=== PATIENT | female | born 1970 | race African-American/Black ===

== ENCOUNTER → 2020-08-31 | Outpatient (CLI) | payer BC ==
[2016-05-06 16:40] VITALS: BP 150/90
[~2020-08-31] MED LIST: AMLO-187 PO; ESCITALOPRAM OX20 MG PO; PRED20TA PO
== END ==
LOC: LAB 08:17
PROVIDERS: ATTEND Nurse Anesthetist, Certified Registered
DX: Z01.812 Encounter for preprocedural laboratory examination (principal); R58 Hemorrhage, not elsewhere classified; Z20.822 Contact with and (suspected) exposure to COVID-19
CPT/HCPCS: U0003

== ENCOUNTER → 2020-11-30 | Outpatient (CLI) | payer BC ==
[2016-05-06 16:40] VITALS: BP 150/90
== END ==
LOC: LAB 07:00
PROVIDERS: ATTEND Nurse Anesthetist, Certified Registered
DX: Z01.812 Encounter for preprocedural laboratory examination (principal); Z20.822 Contact with and (suspected) exposure to COVID-19
CPT/HCPCS: U0003

== ENCOUNTER → 2020-12-04 | Day surgery (SDC) | payer BC, OTHER ==
[~2020-12-04] MED LIST changes: +GLYCOPYRROLATE 1 MG/5 ML VIAL. ONE; +IPRATRPIUM/ALBUTEROL 0.5/2.5MG 3 ML NEBU. NEB PRN; +IV RINGERS SOLUTION,LACTATED 1,000 ML IV SCH; +LIDOCAINE 2% PF 5 ML VIAL. ONE; +MIDAZOLAM HCL PF 2 MG/2 ML VIAL. IV ONE; +ONDANSETRON PF 4 MG/2 ML VIAL. IV PRN; +ONDANSETRON PF 4 MG/2 ML VIAL. ONE; +PROPOFOL 10,000 MCG/ML (20ML) VIAL IV ONE
--- NOTE | 2020-12-04 11:32 | NUR ---
PATIENT STATES MENSTRUAL PERIODS ARE SPORADIC AND HAS NOT BEEN SEXUALLY ACTIVE IN 13 YEARS. NOTIFIED ANESTHESIA.
[2020-12-04 12:35] VITALS: BP 129/64
== END | disposition home or self-care (01) ==
LOC: SURG 10:53
PROVIDERS: ATTEND Internal Medicine Gastroenterology
DX: K92.1 Melena (principal); K57.30 Diverticulosis of large intestine without perforation or abscess without bleeding; K57.32 Diverticulitis of large intestine without perforation or abscess without bleeding; R14.0 Abdominal distension (gaseous); K64.8 Other hemorrhoids; I10 Essential (primary) hypertension; E66.9 Obesity, unspecified; Z88.0 Allergy status to penicillin; Z91.013 Allergy to seafood; Z91.041 Radiographic dye allergy status; Z79.899 Other long term (current) drug therapy
CPT/HCPCS: 45378; J2001; J2405; J2704; J3490; J7120

== ENCOUNTER → 2021-03-12 | Outpatient (CLI) | payer OTHER ==
[2020-12-04 12:35] VITALS: BP 129/64
[~2021-03-12] MED LIST changes: -GLYCOPYRROLATE 1 MG/5 ML VIAL. ONE; -IPRATRPIUM/ALBUTEROL 0.5/2.5MG 3 ML NEBU. NEB PRN; -IV RINGERS SOLUTION,LACTATED 1,000 ML IV SCH; -LIDOCAINE 2% PF 5 ML VIAL. ONE; -MIDAZOLAM HCL PF 2 MG/2 ML VIAL. IV ONE; -ONDANSETRON PF 4 MG/2 ML VIAL. IV PRN; -ONDANSETRON PF 4 MG/2 ML VIAL. ONE; -PROPOFOL 10,000 MCG/ML (20ML) VIAL IV ONE
--- NOTE | 2021-03-12 16:04 | RAD ---
MG 2D BILAT SCREENING 03/12/2021 3:10 PM INDICATION: Asymptomatic screening mammogram. COMPARISON: None available TECHNIQUE: 2D CC and MLO projections were obtained of each breast. FINDINGS: Breast density: Category C: The breats are heterogeneously dense, which may obscure small masses. Right breast: There are no suspicious microcalcifications, masses or areas of architectural distortio n. Left breast: Segmental microcalcifications identified within the inferior left breast, along the post erior nipple line on the left CC view. Further evaluation with spot magnification CC and ML views rec ommended as well as full field true lateral. IMPRESSION: 1. Incomplete left mammogram. Additional imaging is recommended as detailed above. 2. Negative right mammogram. BI-RADS category: 0; Incomplete Recommendations: Recommend additional imaging for which the patient will need to be called back. Electronically signed by: Sommer Magana MD (03/12/2021 4:01 PM) [id number]
== END ==
LOC: MAMMO 15:07
PROVIDERS: ATTEND Internal Medicine
DX: Z12.31 Encounter for screening mammogram for malignant neoplasm of breast (principal)
CPT/HCPCS: 77067

== ENCOUNTER 2021-07-17 14:00 | Emergency (ER) | payer OTHER ==
[~2021-07-17] VITALS: Ht 162.6 cm; Wt 85.4 kg
--- NOTE | 2021-07-17 15:40 | PHYS DOC ---
Past History Past Medical History: No Pertinent History Past Surgical History: Cholecystectomy Alcohol Use: None Drug Use: None Adult General Chief Complaint Chief Complaint: SHORTNESS OF BREATH HPI HPI Patient is a 50-year-old male presenting via POV for chest pain. Reports she was recently diagnosed with COVID within the last 72 hours. States she is vaccinated with prior history of infection on 2019. Reports she has been fatigued with a dry nonproductive cough, classic upper respiratory symptoms and chest pain that is left-sided without radiation and constant for last 48 hours. Nothing known makes better, she has been using her son's albuterol inhaler with mild relief in symptoms. She has no other pertinent comorbid conditions besides high blood pressure and mental health issues, is not on any anticoagulation with no prior history of CAD or blood clots Review of Systems Review of Systems Fourteen body systems of review of systems have been reviewed. See HPI for pertinent positives and negative responses, other [place] all other systems are negative, non-pertinent or non-contributory Allergies Allergies Allergies Coded Allergies Type Severity Reaction Last Updated Verified Penicillins Allergy Unknown 12/04/20 No iodine Allergy Unknown 12/04/20 Yes shellfish derived Allergy Unknown 12/04/20 No Physical Exam Physical Exam Constitutional: Well developed, well nourished, moderate distress due to anxiety but is otherwise non-toxic in appearance. HENT: Normocephalic, atraumatic, bilateral external ears normal, oropharynx moist, no oral exudates, nose normal. Eyes: PERRLA, EOMI, conjunctiva normal, no discharge. Neck: Normal range of motion, no tenderness, supple, no stridor. Cardiovascular: Heart rate regular, sinus rhythm, no murmurs rubs or gallops Lungs & Thorax: Speaking in few word sentences at times but there is no inc reased work of breathing, accessory muscle use, acute respiratory distress with bilateral lungs clear to auscultation Abdomen: Bowel sounds normal, soft, no tenderness, no masses, no pulsatile masses. Nonsurgical abdomen, no peritoneal signs Skin: Warm, dry, no erythema, no rash. Back: No tenderness, no CVA tenderness. Extremities: No tenderness, no cyanosis, no clubbing, ROM intact, no edema. Neurologic: Alert and oriented X 3, grossly normal motor & sensory function, no focal deficits noted. Psychologic: Anxious affect and mood Current Patient Data Vital Signs Vital Signs Date Time Temp Pulse Resp B/P (MAP) Pulse Ox O2 Delivery O2 Flow Rate FiO2 07/17/21 16:58 99.2 62 16 137/62 (87) 100 Room Air Vital Signs Date Time Temp Pulse Resp B/P (MAP) Pulse Ox O2 Delivery O2 Flow Rate FiO2 07/17/21 18:12 99 18 138/70 (92) 100 07/17/21 16:58 99.2 Room Air Lab Results Laboratory Tests Test 07/17/21 15:50 07/17/21 16:10 White Blood Count 7.2 x10^3/uL Red Blood Count 4.63 x10^6/uL Hemoglobin 13.1 g/dL Hematocrit 39.1 % Mean Corpuscular Volume 85 fL Mean Corpuscular Hemoglobin 28 pg Mean Corpuscular Hemoglobin Concent 33 g/dL Red Cell Distribution Width 14.8 % Platelet Count 315 x10^3/uL Neutrophils (%) (Auto) 65 % Lymphocytes (%) (Auto) 24 % Monocytes (%) (Auto) 7 % Eosinophils (%) (Auto) 3 % Basophils (%) (Auto) 1 % Neutrophils # (Auto) 4.7 x10^3uL Lymphocytes # (Auto) 1.7 x10^3/uL Monocytes # (Auto) 0.5 x10^3/uL Eosinophils # (Auto) 0.2 x10^3/uL Basophils # (Auto) 0.1 x10^3/uL Sodium Level 137 mmol/L Potassium Level 3.0 mmol/L Chloride Level 99 mmol/L Carbon Dioxide Level 31 mmol/L Anion Gap 7 Blood Urea Nitrogen 12 mg/dL Creatinine 0.9 mg/dL Estimated GFR (Cockcroft-Gault) 80.2 BUN/Creatinine Ratio 13 Glucose Level 82 mg/dL Calcium Level 9.3 mg/dL Magnesium Level 2.2 mg/dL Total Bilirubin 0.3 mg/dL Aspartate Amino Transf (AST/SGOT) 22 U/L Alanine Aminotransferase (ALT/SGPT) 21 U/L Alkaline Phosphatase 80 U/L Troponin I High Sensitivity 46 ng/L LG-Jqk-N-Type Natriuretic Peptide 13 pg/mL Total Protein 7.8 g/dL Albumin 3.3 g/dL Albumin/Globulin Ratio 0.7 Urine Collection Type Unknown Urine Color Yellow Urine Clarity Clear Urine pH 8.5 Urine Specific [place] 1.020 Urine Protein Neg Urine Glucose (UA) Neg mg/dL Urine Ketones (Stick) 15 mg/dL Urine Blood Neg Urine Nitrite Neg Urine Bilirubin Neg Urine Urobilinogen Dipstick 0.2 mg/dL Urine Leukocyte Esterase Neg Urine RBC 0 /HPF Urine WBC 0 /HPF Urine Squamous Epithelial Cells Few /LPF Urine Bacteria Few /HPF Current Medications Medications (Trade) Dose Ordered Sig/Ashley Route PRN Reason Start Time Stop Time Status Last Admin Dose Admin Aspirin (Aspirin Chewable) 162 mg 1X ONCE PO 07/17/21 15:45 07/17/21 15:46 DC 07/17/21 16:46 Potassium Chloride (Klor-Con) 40 meq 1X ONCE PO 07/17/21 17:30 07/17/21 17:31 DC 07/17/21 17:55 EKG EKG EKG ordered and interpreted by myself at 1659 hrs. as sinus rhythm at 71 bpm, unremarkable intervals, no axis deviation, no obvious ischemic findings, no STEMI Radiology/Procedures Radiology/Procedures Study: XR CHEST 1V Indication: Cough. Comparison: 07/17/2020 Findings: The cardiomediastinal silhouette and suzanne are within normal limits. No localized airspace opacity, pleural effusion or pneumothorax. Impression: No acute radiographic abnormality of the chest. No relevant change from the 06/23 comparison. Electronically signed by: PAVITHRA BADILLO MD (07/17/2021 8:49 PM) [facility] Heart Score C/O Chest Pain: Yes HEART Score for Chest Pain: HEART Score for Chest Pain Response (Comments) Value History Slighlty/Non-Suspicious 0 ECG Normal 0 Age >45 - < 65 1 Risk Factors 1 or 2 Risk Factors 1 Troponin < Normal Limit 0 Total 2 Risk Factors: Risk Factors: DM, Current or recent (<one month) smoker, HTN, HLP, family history of CAD, obesity. Risk Scores: Risk Factors: DM, Current or recent (<one month) smoker, HTN, HLP, family history of CAD, obesity. Course & Med Decision Making Course & Med Decision Making ABCs unremarkable. I disclosed entirety of ER findings and discussed most likely diagnosis of atypical chest pain in setting of known Covid positive patient who is vaccinated. Other diagnoses were discussed with patient such as ACS, pneumonia and other potentially life-threatening diagnoses but all deemed less likely causes of patient's presentation. Plan of care discussed at length with need for close outpatient follow-up to review today's ER visit stressed. Strict return precautions were also discussed at length with good understanding verbalized by patient. Patient's hypokalemia supplemented with potassium today, because likely due to use of her sons proair inhaler. Advised against continued use in absence of any pulmonary abnormalities and/or wheezing, patient given incentive spirometer to use at home. Patient voiced understanding and agreement with the plan. Patient knows to come back for repeat evaluation if concerning signs or symptoms present prior to outpatient follow-up. Hemodynamically stable, ambulatory and well-appearing at time of disposition. Dragon Disclaimer Dragon Disclaimer This electronic medical record was generated, in whole or in part, using a voice recognition dictation system. Departure Departure: Impression: Primary Impression: COVID-19 Additional Impression: Hypokalemia Disposition: HOME / SELF CARE / HOMELESS Condition: STABLE Referrals: HADLEY GOODWIN MD (PCP) Additional Instructions: As discussed prior to ER departure, your vitals, physical exam and comprehensive ER work-up nonconcerning for any emergent or surgical issues. You are suffering sequelae from COVID-19 and should utilize incentive spirometry in addition to additional supportive care practices such as ibuprofen and/or Tylenol for aches and pains at home. Your potassium was low, likely due to the use of your son's inhaler. This was replaced today and will need outpatient monitoring for repeat analysis when safe to do so. If any concerning signs or symptoms present prior to outpatient follow-up please do not hesitate to come back for repeat evaluation. It was a pleasure to take care of you and I wish you the best going forward Problem Qualifiers SAM LEA DO Jul 17, 2021 15:40
[2021-07-17] MEDS ORDERED: ASPIRIN CHEWABLE 81 MG TABLET. PO ONE (15:45)
[2021-07-17 16:05] LABS: BASO # 0.1 x10^3/uL (0.0-0.2); BASO % 1 % (0-3); EOS # 0.2 x10^3/uL (0.0-0.7); EOS % 3 % (0-3); HEMATOCRIT 39.1 % (36.0-47.0); HEMOGLOBIN 13.1 g/dL (12.0-15.5); LYMPH # 1.7 x10^3/uL (1.0-4.8); LYMPH % 24 % (24-48); MEAN CORPUSCULAR HEMOGLOBIN 28 pg (25-35); MEAN CORPUSCULAR HGB CONC 33 g/dL (31-37); MEAN CORPUSCULAR VOLUME 85 fL (79-100); MONO # 0.5 x10^3/uL (0.0-1.1); MONO % 7 % (0-9); NEUT # 4.7 x10^3uL (1.8-7.7); NEUT % 65 % (31-73); PLATELET COUNT 315 x10^3/uL (140-400); RED BLOOD COUNT 4.63 x10^6/uL (3.50-5.40); RED CELL DISTRIBUTION WIDTH 14.8 % (11.5-14.5); WHITE BLOOD COUNT 7.2 x10^3/uL (4.0-11.0)
[2021-07-17 16:15] LABS: CALCIUM 9.3 mg/dL (8.5-10.1); CREATININE 0.9 mg/dL (0.6-1.0); GFR 80.2
[2021-07-17 16:27] LABS: ALBUMIN 3.3 g/dL (3.4-5.0); ALBUMIN/GLOBULIN RATIO 0.7 (1.0-1.7); TOTAL BILIRUBIN 0.3 mg/dL (0.2-1.0); TOTAL PROTEIN 7.8 g/dL (6.4-8.2)
[2021-07-17 16:39] LABS: BACTERIA,URINE FEW /HPF (0-FEW); BILIRUBIN,URINE NEG (NEG); CLARITY,URINE CLEAR; COLOR,URINE YELLOW; GLUCOSE,URINE NEG (NEG); NITRITE,URINE NEG (NEG); RBC,URINE 0 /HPF (0-2); SQUAMOUS EPITHELIAL CELL,UR FEW /LPF; UROBILINOGEN,URINE 0.2 mg/dL (0.2 mg/dL); WBC,URINE 0 /HPF (0-4)
[2021-07-17] MEDS ORDERED: POTASSIUM CHLORIDE 20 MEQ TABLET.ER. PO ONE (17:30)
[2021-07-17 18:12] VITALS: BP 138/70
--- NOTE | 2021-07-17 20:51 | RAD ---
Study: XR CHEST 1V Indication: Cough. Comparison: 07/17/2020 Findings: The cardiomediastinal silhouette and suzanne are within normal limits. No localized airspace opacity, pl eural effusion or pneumothorax. Impression: No acute radiographic abnormality of the chest. No relevant change from the 07/17/2020 comparison. Electronically signed by: PAVITHRA BADILLO MD (07/17/2021 8:49 PM) [facility] [place]
--- NOTE | 2021-07-18 19:14 | EKG ---
[address] [address] Test Date: 2021-07-17 Test Time: 16:52:38 Pat Name: MAMADOU MELCHOR Department: Room: Gender: F [employer]: RYAN : 1970 Requested By: SAM LEA Order Number: [id number] Reading MD: Alexander Cervantes Measurements Intervals [place] Rate: 71 P: 49 MD: 154 QRS: 24 QRSD: 82 T: 27 QT: 394 QTc: 433 Interpretive Statements SINUS RHYTHM NORMAL ECG RI6.02 No previous ECG available for comparison Electronically Signed On 07-19-2021 13:10:52 SAS ADMINISTRATOR by Alexander Cervantes
== END 2021-07-17 18:14 | disposition home or self-care (01) ==
LOC: ER 14:00
DX: U07.1 COVID-19 (principal); E87.6 Hypokalemia; Z88.0 Allergy status to penicillin; Z91.013 Allergy to seafood
CPT/HCPCS: 36415; 71045; 80053; 81001; 83735; 83880; 84484; 85025; 93005; 99285

== ENCOUNTER 2021-08-23 15:41 | Emergency (ER) | payer OTHER ==
[~2021-08-23] VITALS: Ht 162.6 cm; Wt 91.2 kg
--- NOTE | 2021-08-23 16:26 | PHYS DOC ---
Past History Past Medical History: No Pertinent History Additional Past Medical Histor: COVID X2 (DANAY BOOTH DO) Past Medical History: IBS (BILL COLLINS MD) Past Surgical History: No Surgical History (DANAY BOOTH DO) Alcohol Use: None Drug Use: None (DANAY BOOTH DO) General Adult EDM: Chief Complaint: FLANK PAIN HPI: HPI: 51-year-old female presents with abdominal pain, distention, and right flank pain. Patient has been having intermittent pain on the side since June. She has had urinalysis done which reported to be negative for infection. She presents today because the pain is worse and she now has abdominal bloating. She states "I look ". She has no known history of kidney or liver disease. She denies fever or chills. She is most tender in the epigastric and right side of her abdomen. (DANAY BOOTH DO) Review of Systems: Review of Systems: Constitutional: Denies fever or chills Eyes: Denies change in visual acuity HENT: Denies nasal congestion or sore throat Respiratory: Denies cough or shortness of breath Cardiovascular: Denies chest pain or edema GI: Epigastric and right-sided abdominal pain. Denies nausea, vomiting, bloody stools or diarrhea : Urinary retention Musculoskeletal: Denies back pain or joint pain Integument: Denies rash Neurologic: Denies headache, focal weakness or sensory changes Endocrine: Denies polyuria or polydipsia Lymphatic: Denies swollen glands Psychiatric: Denies depression or anxiety (DANAY BOOTH DO) Current Medications: Current Meds: Current Medications Medications (Trade) Dose Ordered Sig/Ashley Start Time Stop Time Status Last Admin Dose Admin Sodium Chloride 1,000 ml @ 1,000 mls/hr 1X ONCE 08/23/21 16:30 08/23/21 17:29 (DANAY BOOTH DO) Allergies: Allergies: Allergies Coded Allergies Type Severity Reaction Last Updated Verified Penicillins Allergy Unknown 12/04/20 No iodine Allergy Unknown 12/04/20 Yes shellfish derived Allergy Unknown 12/04/20 No (DANAY BOOTH DO) Physical Exam: PE: Constitutional: Well developed, well nourished, no acute distress, non-toxic appearance. [] HENT: Normocephalic, atraumatic, bilateral external ears normal, oropharynx moist, no oral exudates, nose normal. [] Eyes: PERRLA, EOMI, conjunctiva normal, no discharge. [] Neck: Normal range of motion, no tenderness, supple, no stridor. [] Cardiovascular: Heart rate regular rhythm, no murmur [] Lungs & Thorax: Bilateral breath sounds clear to auscultation [] Abdomen: Bowel sounds normal, soft, epigastric and right-sided tenderness, no masses, no pulsatile masses. [] Skin: Warm, dry, no erythema, no rash. [] Back: No tenderness, right-sided CVA tenderness. [] Extremities: No tenderness, no cyanosis, no clubbing, ROM intact, no edema. [] Neurologic: Alert and oriented X 3, normal motor function, normal sensory function, no focal deficits noted. [] Psychologic: Affect normal, judgement normal, mood normal. [] (DANAY BOOHT DO) Current Patient Data: Vital Signs: Vital Signs Date Time Temp Pulse Resp B/P (MAP) Pulse Ox O2 Delivery O2 Flow Rate FiO2 08/23/21 15:56 98.6 65 16 137/76 (96) 98 Room Air (DANAY BOOTH DO) EKG: EKG: [] (DANAY BOOTH DO) Radiology/Procedures: Radiology/Procedures: [] Impressions: PQRS Compliance Statement: One or more of the following individualized dose reduction techniques were utilized for this examination: 1. Automated exposure control 2. Adjustment of the mA and/or kV according to patient size 3. Use of iterative reconstruction technique CT ABDOMEN+PELVIS WO Clinical Indication: Reason: right abdominal pain, distention, flank pain Comparison: CT abdomen and pelvis without contrast February 28, 2014. Technique: Helical CT imaging of the abdomen and pelvis is performed without IV or oral contrast. Findings: Evaluation of solid organs and bowel is limited without oral and IV contrast, decreasing sensitivity for detection of pathology. Lung bases are clear. Cardiac size is normal. Cholecystectomy. There is a stable hypodense lesion in segment 5 of the liver measuring 2.5 x 2.9 cm. Stability suggests this lesion is likely benign and may be a hemangioma. The spleen, pancreas, adrenal glands, and abdominal aorta are normal. There is no renal or ureteral calculus. No perinephric stranding or hydronephrosis. The stomach is unremarkable. There is no dilated small bowel. The appendix is normal. There is no colon wall thickening. There are a few diverticula of the distal descending/proximal sigmoid colon. There are multiple subcentimeter mesenteric lymph nodes. There is no adenopathy. There are bilateral fallopian tube occlusion devices. Position is similar to prior study. The urinary bladder is normal. Uterus size is prominent. Question whether there is a posterior fibroid. No pelvic free fluid. There is a left iliac bone island. IMPRESSION: 1. No acute abdominal or pelvic abnormality. No obstructive uropathy. 2. Minimal distal colon diverticulosis. Electronically signed by: Alli Diggs MD (08/23/2021 5:13 PM) [facility] DICTATED AND SIGNED BY: ALLI DIGGS MD DATE: 08/23/21 [id number] CC: DANAY BOOTH DO; HADLEY GOODWIN MD ~MTH0 0 (DANAY BOOTH DO) Radiology/Procedures: [place] [address] IMAGING REPORT Signed PATIENT: MAMADOU MELCHOR WACCOUNT: [id number] : 1970 LOCATION: ER AGE: 51 SEX: F EXAM STATUS: REG ER ORD. PHYSICIAN: DANAY BOOTH DO REASON: right abdominal pain, distention, flank pain PROCEDURE: CT ABDOMEN PELVIS WO CONTRAST PQRS Compliance Statement: One or more of the following individualized dose reduction techniques were utilized for this examination: 1. Automated exposure control 2. Adjustment of the mA and/or kV according to patient size 3. Use of iterative reconstruction technique CT ABDOMEN+PELVIS WO Clinical Indication: Reason: right abdominal pain, distention, flank pain Comparison: CT abdomen and pelvis without contrast February 28, 2014. Technique: Helical CT imaging of the abdomen and pelvis is performed without IV or oral contrast. Findings: Evaluation of solid organs and bowel is limited without oral and IV contrast, decreasing sensitivity for detection of pathology. Lung bases are clear. Cardiac size is normal. Cholecystectomy. There is a stable hypodense lesion in segment 5 of the liver measuring 2.5 x 2.9 cm. Stability suggests this lesion is likely benign and may be a hemangioma. The spleen, pancreas, adrenal glands, and abdominal aorta are normal. There is no renal or ureteral calculus. No perinephric stranding or hydronephrosis. The stomach is unremarkable. There is no dilated small bowel. The appendix is normal. There is no colon wall thickening. There are a few diverticula of the distal descending/proximal sigmoid colon. There are multiple subcentimeter mesenteric lymph nodes. There is no adenopathy. There are bilateral fallopian tube occlusion devices. Position is similar to prior study. The urinary bladder is normal. Uterus size is prominent. Question whether there is a posterior fibroid. No pelvic free fluid. There is a left iliac bone island. IMPRESSION: 1. No acute abdominal or pelvic abnormality. No obstructive uropathy. 2. Minimal distal colon diverticulosis. Electronically signed by: Alli Diggs MD (08/23/2021 5:13 PM) [facility] DICTATED AND SIGNED BY: ALLI DIGGS MD DATE: 08/23/211658 CC: DANAY BOOTH DO; HADLEY GOODWIN MD ~MTH0 0 (BILL COLLINS MD) Heart Score: C/O Chest Pain: N/A Risk Factors: Risk Factors: DM, Current or recent (<one month) smoker, HTN, HLP, family history of CAD, obesity. Risk Scores: Score 0 - 3: 2.5% MACE over next 6 weeks - Discharge Home Score 4 - 6: 20.3% MACE over next 6 weeks - Admit for Clinical Observation Score 7 - 10: 72.7% MACE over next 6 weeks - Early Invasive Strategies (DANAY BOOTH DO) Course & Med Decision Making: Course & Med Decision Making Pertinent Labs and Imaging studies reviewed. (See chart for details) The patient CT scan is negative for acute findings. She doesn't appear to have moderate stool burden. This may be the source of her discomfort. Her labs are essentially unremarkable. Her urinalysis is pending. I'm signing patient out to Dr. Collins at 1800. [] (DANAY BOOTH DO) Course & Med Decision Making See Dr. Booth chart for details prior shift change. Patient follow-up with Dr. Goodwin. Or Dr. Miguel. Impression: 1. Abdomen and Flank Pain 2. Constipation 3. IBS vs Gastroenteritis 4. [id number] hgb (BILL COLLINS MD) Dragon Disclaimer: Dragon Disclaimer: This electronic medical record was generated, in whole or in part, using a voice recognition dictation system. (DANAY BOOTH DO) Departure Departure: Impression: Primary Impression: Constipation Referrals: HADLEY GOODWIN MD (PCP) DANAY BOOTH DO Aug 23, 2021 16:26 BILL COLLINS MD Aug 23, 2021 18:22
[2021-08-23] MEDS ORDERED: IV NORMAL SALINE 1,000ML 1,000 ML IV ONE (16:30)
[2021-08-23 16:48] LABS: BASO % 0 % (0-3); EOS # 0.1 x10^3/uL (0.0-0.7); EOS % 2 % (0-3); HEMATOCRIT 35.3 % (36.0-47.0); HEMOGLOBIN 11.7 g/dL (12.0-15.5); LYMPH % 23 % (24-48); MEAN CORPUSCULAR HEMOGLOBIN 28 pg (25-35); MEAN CORPUSCULAR HGB CONC 33 g/dL (31-37); MEAN CORPUSCULAR VOLUME 85 fL (79-100); MONO # 0.5 x10^3/uL (0.0-1.1); MONO % 6 % (0-9); NEUT # 6.1 x10^3uL (1.8-7.7); NEUT % 69 % (31-73); PLATELET COUNT 361 x10^3/uL (140-400); RED BLOOD COUNT 4.15 x10^6/uL (3.50-5.40); RED CELL DISTRIBUTION WIDTH 15.3 % (11.5-14.5); WHITE BLOOD COUNT 8.8 x10^3/uL (4.0-11.0)
[2021-08-23] MEDS ORDERED: ONDANSETRON PF 4 MG/2 ML VIAL. IVP ONE (17:00)
[2021-08-23] MEDS ORDERED: MORPHINE SULFATE 4 MG/ML DISP.SYRIN. IV ONE (17:00)
[2021-08-23 17:03] LABS: CALCIUM 9.1 mg/dL (8.5-10.1); CREATININE 0.8 mg/dL (0.6-1.0); GFR 91.5; POTASSIUM 3.7 mmol/L (3.5-5.1)
[2021-08-23 17:08] LABS: ALBUMIN 3.2 g/dL (3.4-5.0); ALBUMIN/GLOBULIN RATIO 0.8 (1.0-1.7); TOTAL BILIRUBIN 0.2 mg/dL (0.2-1.0); TOTAL PROTEIN 7.3 g/dL (6.4-8.2)
--- NOTE | 2021-08-23 17:16 | RAD ---
PQRS Compliance Statement: One or more of the following individualized dose reduction techniques were utilized for this examinat ion: 1. Automated exposure control 2. Adjustment of the mA and/or kV according to patient size 3. Use of iterative reconstruction technique CT ABDOMEN+PELVIS WO Clinical Indication: Reason: right abdominal pain, distention, flank pain Comparison: CT abdomen and pelvis without contrast February 28, 2014. Technique: Helical CT imaging of the abdomen and pelvis is performed without IV or oral contrast. Findings: Evaluation of solid organs and bowel is limited without oral and IV contrast, decreasing sensitivity for detection of pathology. Lung bases are clear. Cardiac size is normal. Cholecystectomy. There is a stable hypodense lesion in segment 5 of the liver measuring 2.5 x 2.9 cm. Stability suggests this lesion is likely benign and may be a hemangioma. The spleen, pancreas, adren al glands, and abdominal aorta are normal. There is no renal or ureteral calculus. No perinephric str anding or hydronephrosis. The stomach is unremarkable. There is no dilated small bowel. The appendix is normal. There is no col on wall thickening. There are a few diverticula of the distal descending/proximal sigmoid colon. Ther e are multiple subcentimeter mesenteric lymph nodes. There is no adenopathy. There are bilateral fallopian tube occlusion devices. Position is similar to prior study. The urinary bladder is normal. Uterus size is prominent. Question whether there is a posterior fibroid. No pelvi c free fluid. There is a left iliac bone island. IMPRESSION: 1. No acute abdominal or pelvic abnormality. No obstructive uropathy. 2. Minimal distal colon diverticulosis. Electronically signed by: Alli Diggs MD (08/23/2021 5:13 PM) [facility]
[2021-08-23 18:47] LABS: BACTERIA,URINE 0 /HPF (0-FEW); CLARITY,URINE CLEAR; COLOR,URINE YELLOW; GLUCOSE,URINE NEG (NEG); NITRITE,URINE NEG (NEG); RBC,URINE 0 /HPF (0-2); SQUAMOUS EPITHELIAL CELL,UR OCC /LPF; UROBILINOGEN,URINE 0.2 mg/dL (0.2 mg/dL); WBC,URINE 0 /HPF (0-4)
[2021-08-23] MEDS ORDERED: MAGNESIUM HYDROXIDE 2,400 MG/30 ML ORAL.SUSP. PO ONE (21:00)
[2021-08-23 21:13] VITALS: BP 134/73
== END 2021-08-23 21:14 | disposition home or self-care (01) ==
LOC: ER 15:41
DX: K59.00 Constipation, unspecified (principal); D64.9 Anemia, unspecified; Z88.0 Allergy status to penicillin; Z88.8 Allergy status to other drugs, medicaments and biological substances; Z91.013 Allergy to seafood
CPT/HCPCS: 36415; 74176; 80053; 81001; 83880; 85025; 96361; 96374; 96375; 99284; J2270; J2405; J7030